=== PATIENT | male | born 1985 | race Caucasian/White ===

== ENCOUNTER 2017-12-16 21:59 | Emergency (ER) | payer MEDICAID ==
[~2017-12-16] VITALS: Ht 175.3 cm; Wt 73.5 kg
[2017-12-16 22:03] VITALS: Ht 175.3 cm; Wt 73.5 kg
[2017-12-16 23:12] LABS: BASOPHIL % 0.5 % (0-2); PLATELET COUNT 255 x10^3mcL (130-400); RED CELL DISTRIBUTION WIDTH 13.2 % (11.5-14.5)
[2017-12-16 23:16] LABS: CALCIUM 8.4 mg/dL (8.5-10.1); CARBON DIOXIDE 30.8 mmol/L (21-32); CHLORIDE SERUM 105 mmol/L (98-107); CREATININE SERUM 0.9 mg/dL (0.7-1.3); GFR1 > 60 mL/min; GLUCOSE SERUM 83 mg/dL (74-106); POTASSIUM SERUM 3.7 mmol/L (3.5-5.1); SODIUM SERUM 143 mmol/L (136-145)
[2017-12-16 23:20] LABS: ALBUMIN 3.6 g/dL (3.4-5.0); ALKALINE PHOSPHATASE 78 U/L (46-116); ALT/SGPT 21 U/L (16-63); AST/SGOT 10 U/L (15-37); BILIRUBIN TOTAL 0.2 mg/dL (0.20-1.00); TOTAL PROTEIN, SERUM 6.6 g/dL (6.4-8.2)
[2017-12-17 00:07] VITALS: BP 106/80
[2017-12-17 00:27] LABS: AMPHETAMINE QUAL UR NONE DETECTED (NEG <=1000)
== END 2017-12-17 00:07 | disposition home or self-care (01) ==
LOC: ED 21:59
PROVIDERS: Specialist
DX: R51 Headache (principal); M79.1 Myalgia; F15.10 Other stimulant abuse, uncomplicated
CPT/HCPCS: 36415

== ENCOUNTER 2018-04-21 22:19 | Emergency (ER) | payer MEDICAID ==
[~2018-04-21] VITALS: Ht 175.3 cm; Wt 80.8 kg
[2018-04-21 22:29] VITALS: Ht 175.3 cm; Wt 80.8 kg
[2018-04-21 23:35] LABS: CALCIUM 9.3 mg/dL (8.5-10.1); CARBON DIOXIDE 27.6 mmol/L (21-32); CHLORIDE SERUM 103 mmol/L (98-107); GFR1 > 60 mL/min; GLUCOSE SERUM 107 mg/dL (74-106); POTASSIUM SERUM 3.9 mmol/L (3.5-5.1); SODIUM SERUM 138 mmol/L (136-145)
[2018-04-21 23:39] LABS: ALBUMIN 4.2 g/dL (3.4-5.0); ALKALINE PHOSPHATASE 81 U/L (46-116); ALT/SGPT 71 U/L (16-63); AMPHETAMINE QUAL UR POSITIVE (See below); AST/SGOT 28 U/L (15-37); BASOPHIL % 0.3 % (0-2); BILIRUBIN TOTAL 0.3 mg/dL (0.20-1.00); LIPASE 110 IU/L (73-393); PLATELET COUNT 299 x10^3mcL (130-400); RED CELL DISTRIBUTION WIDTH 12.9 % (11.5-14.5); TOTAL PROTEIN, SERUM 8.1 g/dL (6.4-8.2)
[2018-04-22 01:31] VITALS: BP 133/82
== END 2018-04-22 01:32 | disposition home or self-care (01) ==
LOC: ED 22:19
PROVIDERS: Emergency Medicine
DX: K80.20 Calculus of gallbladder without cholecystitis without obstruction (principal); F15.10 Other stimulant abuse, uncomplicated
CPT/HCPCS: 36415; Q0092

== ENCOUNTER 2019-01-29 18:01 | Emergency (ER) | payer MEDICAID ==
[~2019-01-29] VITALS: Ht 175.3 cm; Wt 92.1 kg
[2019-01-29 18:17] VITALS: Ht 175.3 cm; Wt 92.1 kg
[2019-01-29 20:10] VITALS: BP 107/62
== END 2019-01-29 20:10 | disposition home or self-care (01) ==
LOC: ED 18:01
DX: F12.10 Cannabis abuse, uncomplicated (principal); R42 Dizziness and giddiness
CPT/HCPCS: J2765; J8597